=== PATIENT | male | born 1930 | race Caucasian/White ===

== ENCOUNTER 2016-04-19 16:36 | Observation (INO) | payer OTHER, BC ==
--- NOTE | 2016-04-19 17:12 | EDPHY ---
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 Patient [place] at [place]. He was cross- country skiing when he noticed some vertical double vision. The symptoms slowly progressed and worsened. It resolves when he covers 1 eye bilaterally. He went to the emergency department at [place]. There he had a negative head CT. He was sent to the [facility] for further evaluation MRI imaging. Patient states he still has vertical diplopia. No headache. No weakness or numbness. No recent trauma or illness. No neck pain. REVIEW OF SYSTEMS: My complete review of systems is negative except as mentioned in the HPI. Past Medical/Surgical History: Includes bladder tumor, coronary artery disease, BPH, hypercholesterolemia Past surgical history: Includes hip surgery Social history: The patient does not smoke. Smoking Status: Never smoked Physical Exam: Vitals noted GENERAL: Well-appearing, in no acute distress, alert. HEENT: PERRLA. Extraocular movements intact. Eyes normal to inspection, normal pharynx, no signs of dehydration. NECK: No thyromegaly, no lymphadenopathy, supple. RESPIRATORY: Clear to auscultation bilaterally, no rales, rhonchi or wheezing. CVS: Regular rate and rhythm, no rubs, murmurs, or gallops. ABDOMEN: Soft, nontender, nondistended, no organomegaly. BACK: Normal to inspection, no CVA tenderness. SKIN: Normal color, no rash, warm, dry. No pallor. EXTREMITIES: No pedal edema, no calf tenderness, no Homans sign or cords, no joint swelling. NEURO/PSYCH: Higher functions: Alert and Oriented x3. Normal speech and cognition. Normal mood and affect. Cranial nerves: Normal as tested. Cerebellar: Normal as tested. Good finger to nose, good [id number], normal gait. Peripheral exam: Normal motor exam. Normal sensation. Normal reflexes. Constitutional: Initial Vital Signs Temperature (C) 36.5 C 04/19/16 16:42 Heart Rate 78 04/19/16 16:42 Respiratory Rate 16 04/19/16 16:42 Blood Pressure 162/75 H 04/19/16 16:42 O2 Sat (%) 94 04/19/16 16:42 O2 Delivery Mode Room Air Allergies/Adverse Reactions: No Known Allergies Allergy (Verified 04/19/16 16:40) Home Medications: Medication Instructions Recorded Aspirin [Aspirin 81mg (*)] 81 mg PO HS 04/16/15 Atorvastatin Calcium [Lipitor 40 40 mg PO HS 04/16/15 mg (*)] Terazosin HCl [Hytrin 5 MG (*)] 5 mg PO HS 04/16/15 Testosterone Cypionate 200 mg IM Q30D 04/16/15 Acetaminophen [Tylenol ES 500 mg 1,000 mg PO BID PRN 05/22/15 (*)] Herbals/Supplements -Info Only 1 ea PO DAILY 06/26/15 Ferrous Sulfate [Slow Fe 140 MG 140 mg PO DAILY #30 tab.er 07/04/15 (*)] Medical Decision Making ED Course/Re-evaluation: In the emergency department I discussed etiologies with the patient as well as plan. I answered all his questions. I reviewed the patient's records from [facility]. I reviewed the EKG from [facility] at (04/19 14:42 p.m.). EKG shows normal sinus rhythm, normal rate, normal axis, prolonged p.r. interval. There are no ST or T-wave abnormalities. Sodium 139, potassium 4.7, chloride 105, carbon dioxide 25, glucose 95, creatinine 1.9, INR 1.0, PTT 13.9, CBC was normal. MRI of the head was ordered. MRI: Please refer the dictated report by Dr. Rodney Rodriguez. 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 No acute disease noted. I discussed the result with the patient. On recheck the patient states he still has mild vertical diplopia but it is improving. He has no other focal neurologic deficits. I discussed case with Dr. Barney. He came to the emergency department to evaluate the patient. Dr. Barney will observe the patient in observation. Differential Diagnosis: My differential includes but is not limited to ischemic CVA, hemorrhagic CVA, dissection, aneurysm, electrolyte abnormality, sugar abnormality, ACS Departure - Departure Disposition: [facility] Inpatient Acute Clinical Impression: Vertical diplopia Condition: Good Referrals: Hamlet Barney MD [Primary Care Provider] - As per Instructions
[2016-04-19] MEDS ORDERED: GADOBUTROL 10 ML VIAL IVP ONE (18:09)
--- NOTE | 2016-04-19 18:55 | MR ---
MRI of the Brain (Without and With Contrast) at 1802 hours Clinical Indications: Vertical diplopia Technique: T1-weighted images were acquired axially and sagittally from the foramen magnum to the ve rtex. Axial fast inversion-recovery, fast T2-weighted, and diffusion-weighted axial images were obta ined without contrast. Postcontrast axial and coronal images with the uneventful intravenous administ ration of 3.2 mL Gadavist contrast. Findings: The ventricles, cisterns, and sulci are widened consistent with atrophy. No hydrocephalus , midline shift, herniation, or epidural/subdural hematomas. No intracranial hemorrhage or masses. Di ffusion-weighted images demonstrate no acute infarct. Cerebellar tonsils are in normal position. Pitu itary gland is normal in size. Normal signal flow-void in the superior sagittal sinus, basilar artery , and bilateral internal carotid arteries indicating patency. Postcontrast images demonstrate no enh ancing lesions or abnormal leptomeningeal enhancement. Paranasal sinuses and mastoid air cells are cl ear. No evidence of brainstem or cerebellar infarcts or enhancing lesions. Benign venous malformation in the left cerebellar hemisphere incidentally noted. Impression: 1. Mild atrophy. 2. No acute hemorrhage, definite acute infarct, hydrocephalus or mass effect. 3. No brainstem or cerebellar infarcts or enhancing lesions. 4. Benign venous malformation left cerebellar hemisphere. Findings and recommendations discussed with Emergency Department physician, Dr. Becerra at 1845 hour, today. Final report concurs with initial preliminary interpretation.
[2016-04-19] MEDS ORDERED: CLOPIDOGREL BISULFATE 75 MG TAB PO ONE (19:23)
[2016-04-19] MEDS ORDERED: D5W NS W/ 20 KCl/L 1,000 ML IV SCH (20:00)
--- NOTE | 2016-04-19 20:23 | GHP ---
[f rep st] HISTORY AND PHYSICAL DATE OF ADMISSION: 04/19/2016 REASON FOR ADMISSION: TIA. HISTORY OF PRESENT ILLNESS: The patient is an 86-year-old male who was cross country skiing [place] 9000 feet today. He developed double vision which last for many hours, but appears to be gradually improv ing. He was seen in the emergency room at [place] and got a CAT scan which showed no hemorrhage. His drove him down to [place], where he had an MRI which showed no acute vascular abnormality. His double vision is gradually improving, almost resolved at this point in time. He has no other ne urologic symptoms. CURRENT MEDICATIONS: Aspirin 81 mg daily, atorvastatin 40 mg daily, terazosin 5 mg h.s., testosteron e 200 mg IM q. 30 days. REVIEW OF SYSTEMS: He has been in his usual state of health. He is very vigorous and active; althou gh, he has some arthritis pains and has been less active lately than he has in the past. PHYSICAL EXAMINATION: VITAL SIGNS: Blood pressure is 159/84, pulse is 75 and regular, respiratory r ate 18, oxygen saturation 96% on room air, temperature is 36.5. GENERAL: He is alert, oriented, and appropriate. HEENT: Pupils are equal and reactive to light. Extraocular motion appeared normal. I could not create double vision by having his eyes follow my finger at about 1 foot away from his he ad. He states when he looked across the room, he could see a little bit of double vision, but this a ppears to be dramatically improved [place]. LUNGS: Clear. HEART: Regular rate and rhythm without apparent murmur. ABDOMEN: Nontender. EXTREMITIES: He has no peripheral e jasper. He moves all extremities well and symmetrically. IMPRESSION: Transient ischemic attack, resolving. PLAN: We will admit to observation tonight. We will start him on clopidogrel. We will obtain an ec ho of his heart and MR angiogram of his carotid in the a.m. to look for ulcerating plaque on the patti ogram or valvular disease or thrombus on the echo. I will load him with 150 mg of clopidogrel lorena montero. /[id number]/MODL
[2016-04-19] MEDS ORDERED: ACETAMINOPHEN 500 MG TAB PO PRN (21:03)
[2016-04-19] MEDS ORDERED: TERAZOSIN HCL 5 MG CAP PO SCH (21:30)
[2016-04-19] MEDS: ATORVASTATIN CALCIUM 40 MG TAB PO SCH (21:35)
[2016-04-20 04:45] LABS: HEMATOCRIT 40.8 % (40.0-51.0); HEMOGLOBIN 13.3 g/dL (13.7-17.5); MEAN CELL HEMOGLOBIN CONCENTR. 32.6 g/dL (32.4-36.7); MEAN CELL VOLUME 95.1 fL (81.5-99.8); RED BLOOD CELL COUNT 4.29 10^6/uL (4.40-6.38); RED CELL DISTRIBUTION WIDTH 14.3 % (11.5-15.2)
[2016-04-20 05:20] LABS: ALANINE AMINOTRANSFERASE 25 IU/L (21-72); ALBUMIN 2.9 g/dL (3.5-5.0); ALKALINE PHOSPHATASE 72 IU/L (38-126); ANION GAP 6 mEq/L (8-16); ASPARTATE AMINOTRANSFERASE 21 IU/L (17-59); BILIRUBIN,TOTAL 0.7 mg/dL (0.1-1.4); C-REACTIVE PROTEIN 7.7 mg/L (<10.0); CARBON DIOXIDE 23 mEq/l (22-31); CHLORIDE 110 mEq/L (97-110); CREATININE 1.6 mg/dL (0.7-1.3); GLOMERULAR FILTRATION RATE 41; GLUCOSE 97 mg/dL (70-100); POTASSIUM 4.7 mEq/L (3.5-5.2); SODIUM 139 mEq/L (134-144); TOTAL PROTEIN 5.7 g/dL (6.3-8.2)
[2016-04-20] MEDS: ATORVASTATIN CALCIUM 40 MG TAB PO SCH (08:21)
[2016-04-20] MEDS ORDERED: CLOPIDOGREL BISULFATE 75 MG TAB PO SCH (09:00)
[2016-04-20] MEDS ORDERED: Herbals/Supplements -Info Only PO SCH (09:00)
[2016-04-20 11:25] VITALS: RESP 16
--- NOTE | 2016-04-20 14:04 | ECHO ---
[id number] + + [address] : : [place] [address] : : [phone] + Adult Echocardiographic Report + --------+ :Name: OUMOU SANTIAGO FStudy Date: 04/20/2016 12:32 PM : : Hospital Admission Number: [id number] Locat ion: 346: :: 1930 Gender: Male : :Age: 86 yrs Race: WH : :Reason For Study: TIA/evaluate for valvular lesions or atrial : :thrombus : + --------+ MMode/2D Measurements & Calculations IVSd: 0.72 cm LVIDd: 4.1 cm FS: 50.7 % Ao root diam: LVPWd: 1.0 cm LVIDs: 2.0 cm EDV(Teich): 3.0 cm 73.8 ml LA dimension: ESV(Teich): 3.9 cm 13.0 ml EF(Teich): 82.4 % LVLd ap4: 7.4 cm SV(MOD-sp4): EDV(MOD-sp4): 39.0 ml 59.0 ml LVLs ap4: 6.6 cm ESV(MOD-sp4): 20.0 ml EF(MOD-sp4): 66.1 % Normal Measurement Values: + + :LVIDd (3.5-5.7cm) IVSd (0.6-1.1cm) LVPWd (0.6-1.1cm) Aortic Root (2.0-3.7cm)Left Atrium (1.5-4.0cm): :LV Vol(d) (76-115ml) LV Vol(s) (29-48ml) Ejec Fraction (50-65%)PV Hector (0.6- 1.2m/s) TV Hector (0.4-1.0m/s) : :MV E Hector (0.8-1.0m/s)MV A Hector (0.3-1.0m/s)LVOT Hector (0.7-1.2m/s) Asc Ao Hector ( 0.9-1.8m/s) : + + Doppler Measurements & Calculations MV E max hector: 68.1 cm/sec Ao mean P.5 mmHg TR max hector: 262.0 cm/sec MV A max hector: 85.4 cm/sec Ao V2 mean: 88.3 cm/sec TR max P.5 mmHg MV E/A: 0.80 Ao V2 VTI: 28.3 cm RAP systole: 5.0 mmHg RVSP(TR): 32.5 mmHg Left Ventricle The left ventricle is normal in size and function. There is normal left ventricular wall thickness. Left ventricular systolic function is normal. Ejection Fraction = 65-70%. E/a wave reversal. No regional wall motion abnormalities noted. Right Ventricle The right ventricle is normal in size and function. Atria The left atrium is moderately dilated. The right atrium is mildly dilated. Mitral Valve The mitral valve is normal in structure and function. There is no evidence of mitral valve prolapse. There is no mitral valve stenosis. There is mild mitral regurgitation. Tricuspid Valve Normal tricuspid valve. Right ventricular systolic pressure is normal. There is mild to moderate tricuspid regurgitation. Aortic Valve The aortic valve is trileaflet. The aortic valve opens well. Mild aortic calcification. There is no aortic stenosis. There is no aortic insufficiency. Pulmonic Valve The pulmonic valve is normal in structure and function. There is no pulmonic valvular regurgitation. Great Vessels The aortic root is normal size. Pericardium/Pleural There is no pericardial effusion. Conclusion A complete two-dimensional transthoracic echocardiogram was performed (2D, M-mode, Doppler and color flow Doppler). There is no obvious source of embolus identified. If one is highly clinically suspected, then transesophageal echocardiography should be considered. The left ventricle is normal in size and function. Left ventricular systolic function is normal. Ejection Fraction = 65-70%. E/a wave reversal. The left atrium is moderately dilated. The right atrium is mildly dilated. There is mild mitral regurgitation. There is mild to moderate tricuspid regurgitation. Right ventricular systolic pressure is normal. Mild aortic calcification. No prior echo Final Reading Physician: Dr Camila Velásquez electronically signed on 04/20/2016 02:03 PM Ordering Physician: Hamlet Barney Performed By: Gloria Bonds RD
[2016-04-20 15:11] VITALS: BP 135/71; PULSE 66; TEMP 97.8; O2SAT 94
[2016-04-20] MEDS ORDERED: ASPIRIN 81 MG CHEWABLE TAB PO SCH (21:00)
[2016-04-26] MEDS ORDERED: NON-FORMULARY NEW DRUG (Testosterone Cypionate [Testosterone Cypionate] 200 MG) IM SCH (08:15)
[2016-04-26] MEDS ORDERED: TESTOSTERONE CYPIONATE 200 MG IM SCH (08:30)
== END 2016-04-20 16:14 | disposition home or self-care (01) ==
LOC: F3N 20:19
PROVIDERS: ADMIT Internal Medicine; ATTEND Internal Medicine
DX: G45.9 Transient cerebral ischemic attack, unspecified (principal); Q28.2 Arteriovenous malformation of cerebral vessels; Z79.82 Long term (current) use of aspirin
CPT/HCPCS: 70553; 93306; A9585; G0378; 82607-90

== ENCOUNTER → 2017-04-12 | Outpatient (CLI) | payer OTHER, BC | LOC: BHFA 11:30 | PROVIDERS: ATTEND Internal Medicine Cardiovascular Disease | DX: R60.9 Edema, unspecified (principal) ==